=== PATIENT | female | born 1960 | race African-American/Black ===

== ENCOUNTER 2016-12-05 20:13 | Emergency (ER) | payer MEDICAID ==
[~2016-12-05] VITALS: Ht 157.5 cm; Wt 65.3 kg
[2016-12-06] MEDS ORDERED: GLUCAGON HYDROCHLORIDE (RDNA) 1 MG VIAL IV ONE (03:45)
[2016-12-06] MEDS ORDERED: BARIUM SULFATE 98% 340 GM PWDR ONE ×2 (05:02→08:48)
[2016-12-06 11:30] VITALS: BP 122/71
== END 2016-12-06 11:43 | disposition home or self-care (01) ==
LOC: ER 20:19
CPT/HCPCS: 71010; 74220; 94761

== ENCOUNTER 2020-05-18 11:57 | Emergency (ER) | payer MEDICAID ==
[~2020-05-18] VITALS: Ht 157.5 cm; Wt 68.0 kg
[2020-05-18] MEDS ORDERED: IBUPROFEN 600 MG TAB PO ONE (12:15)
[2020-05-18 12:16] VITALS: BP 165/88
[2020-05-18] MEDS ORDERED: ACETAMINOPHEN 500 MG TAB PO ONE (12:45)
== END 2020-05-18 13:31 | disposition home or self-care (01) ==
LOC: ER 11:57
DX: M75.32 Calcific tendinitis of left shoulder (principal); M19.012 Primary osteoarthritis, left shoulder; I10 Essential (primary) hypertension; F17.210 Nicotine dependence, cigarettes, uncomplicated; Z98.51 Tubal ligation status; Z90.710 Acquired absence of both cervix and uterus
CPT/HCPCS: 73030; 93005